=== PATIENT | male | born 1980 | race Caucasian/White ===

== ENCOUNTER 2019-01-06 13:17 | Emergency (ER) | payer BC, OTHER ==
[2019-01-06 13:28] VITALS: BP 149/95
--- NOTE | 2019-01-06 13:48 | UC ---
Throat Pain/Nasal Liam HPI - HPI Summary HPI Summary: Patient is a 38yo male presenting with nasal congestion, sore throat, cough, and fatigue x2 days. Notes on episode of emesis two days ago at onset of symptoms. Notes fever yesterday and sweats today. Cough in nonproductive. Denies ear pain and eye symptoms. NOtes nausea yesterday, none today. Denies SOB and wheezing. Denies abdominal pain. Patient had been taking robitussin and tylenol at home with some relief. Denies headache. - History of Current Complaint Chief Complaint: UCGeneralIllness Stated Complaint: HEAD CONGESTION/BODY ACHES/COUGH Hx Obtained From: Patient Onset/Duration: Sudden Onset, Lasting Days Severity: Mild Pain Intensity: 2 Pain Scale Used: 0-10 Numeric - Allergies/Home Medications Allergies/Adverse Reactions: Allergies Allergy/AdvReac Type Severity Reaction Status Date / Time cefaclor [From [facility]] Allergy Severe Anaphylatic Verified 01/06/19 13:28 Shock Home Medications: Home Medications Acetaminophen TAB* [Tylenol TAB*] 01/06/19 [History] guaiFENesin LIQ* [Robitussin*] 5 mg PO Q4H PRN 01/06/19 [History Confirmed 01/06] PMH/Surg Hx/FS Hx/Imm Hx Previously Healthy: Yes - Surgical History Surgical History: None - Family History Known Family History: Positive: Non-Contributory - Social History Alcohol Use: Weekly Substance Use Type: None Smoking Status (MU): Current Some Day Smoker - Immunization History Most Recent Tetanus Shot: 2000 or 2001 Review of Systems All Other Systems Reviewed And Are Negative: Yes Constitutional: Positive: Fever Skin: Positive: Negative Eyes: Positive: Negative ENT: Positive: Sore Throat, Nasal Discharge, Sinus Congestion. Negative: Ear Ache Respiratory: Positive: Negative, Cough. Negative: Shortness Of Breath Cardiovascular: Positive: Negative. Negative: Palpitations, Chest Pain Gastrointestinal: Positive: Vomiting, Diarrhea, Nausea. Negative: Abdominal Pain Genitourinary: Positive: Negative Musculoskeletal: Positive: Negative Neurological: Positive: Negative. Negative: Headache Physical Exam Triage Information Reviewed: Yes Appearance: No Pain Distress, Well-Nourished, Ill-Appearing Vital Signs: Initial Vital Signs Temp 97.7 F 01/06/19 13:23 Pulse 90 01/06/19 13:23 Resp 16 01/06/19 13:23 BP 149/95 01/06/19 13:23 Pulse Ox 96 01/06/19 13:23 Laboratory Tests 01/06/19 14:22 Group A Strep Rapid Negative Vital Signs Reviewed: Yes Eyes: Positive: Conjunctiva Clear. Negative: Discharge ENT: Positive: Hearing grossly normal, Pharyngeal erythema, Nasal congestion, Nasal drainage, TMs normal, Tonsillar swelling, Uvula midline. Negative: TM bulging, TM dull, TM red, Tonsillar exudate, Sinus tenderness Neck exam: Normal Neck: Positive: Supple, Nontender, No Lymphadenopathy Respiratory Exam: Normal Respiratory: Positive: Lungs clear, Normal breath sounds, No respiratory distress, No accessory muscle use. Negative: Crackles, Rhonchi, Stridor, Wheezing Cardiovascular Exam: Normal Cardiovascular: Positive: RRR. Negative: Tachycardia Neurological: Positive: Alert Psychological: Positive: Age Appropriate Behavior Skin: Negative: Rashes Throat Pain/Nasal Course/Dx - Course Course Of Treatment: Discussed with patient the likely viral etiology of upper respiratory symptoms. Patient instructed to continue to take OTC cough and cold medications for relief of cold symptoms. May take OTC analgesics, decongestants, and nasal spray as directed for pain and congestion relief. He was instructed to also take tessalon perles as prescribed for relief of cough. Directed to wash hands often, get plenty of rest and fluids, and return or follow up with PCP if symptoms worsen or do not resolve within 7 days. Patient voiced understanding and agreed to treatment plan. - Differential Dx/Diagnosis Provider Diagnosis: Upper respiratory infection Discharge ED - Sign-Out/Discharge Documenting (check all that apply): Patient Departure All imaging exams completed and their final reports reviewed: No Studies - Discharge Plan Condition: Stable Disposition: HOME Prescriptions: Benzonatate CAP* [Tessalon 100 MG CAP*] 100 mg PO TID PRN #15 cap PRN Reason: Cough Forms: *Work Release Referrals: [facility] [Outside] - If Needed [facility] [place] [facility] [Outside] - If Needed Additional Instructions: You may continue to take over the counter cough and cold medications for your cold symptoms. Take tessalon perles as prescribed for relief of cough. You may use nasal saline spray as directed for symptomatic relief. You may take ibuprofen as directed for pain relief. Get plenty of rest and fluids. Return or follow up with your primary care doctor if your symptoms worsen or do not resolve within 7 days. - Billing Disposition and Condition Condition: STABLE Disposition: Home - Attestation Statements Provider Attestation: I was available for consult. This patient was seen by the PRINCE. The patient was not presented to, seen by, or examined by me. Dav Spann MD
== END 2019-01-06 14:52 | disposition home or self-care (01) ==
LOC: UCEAST 13:17
DX: J06.9 Acute upper respiratory infection, unspecified (principal); Z88.1 Allergy status to other antibiotic agents; Z72.0 Tobacco use
CPT/HCPCS: 87651; 99202; G0463